=== PATIENT | female | born 1970 | race African-American/Black ===

== ENCOUNTER 2016-11-05 00:07 | Inpatient (IN) | payer OTHER ==
[~2016-11-05] VITALS: Ht 177.8 cm; Wt 159.8 kg
--- NOTE | ~2016-11-05 | HP ---
PATIENT'S NAME: DEACON WILSON [facility] AGE: 46 Y [address] ROOM: [place] [address] LOCATION: GPCU ADMIT DATE: 11/05/2016 History & Physical DISCHARGE DATE: FAMILY PHYSICIAN: PHYSICIAN, UNKNOWN ATTENDING PHYSICIAN: YASMIN AGUERO DATE OF SERVICE: CHIEF COMPLAINT: Shortness of breath. HISTORY OF PRESENT ILLNESS: A 46-year-old lady with a past medical history significant for obesity hypoventilation syndrome, morbid obesity, who was travelling from [place] to [place], developed shortness of breath and feeling of being unwell in the motel. She did have a pulse oximeter on her from previous episode of pneumonia, and checked her oxygen levels, which were in the 70s. EMS was called, and the patient was taken to the local emergency department over there. In the emergency department, she was found to be in atrial fibrillation with RVR with elevation of the troponin levels as high as 3, and Cardiology was consulted here, and she was transferred here for further medical care. On my encounter, she is saying that she still feels short of breath, but denied any fever or chills. She denied any palpitations, any chest pain, any chest tightness. No sputum production reported. She denied any extremity swelling. She denied any abdominal pain, any burning on urination, any constipation, diarrhea. She did report that she took multiple breaks while driving from [place] to [place] with her fiance. Never had this kind of symptom before. She said that she had pneumonia in the past, and this symptom does not feel like that this is pneumonia. REVIEW OF SYSTEMS: All other systems reviewed and were negative except those mentioned in the HPI. ALLERGIES: NO KNOWN DRUG ALLERGIES. PAST MEDICAL HISTORY: Obesity hypoventilation syndrome, on BiPAP. MEDICATIONS: None. SOCIAL HISTORY: Quit smoking 8 years ago. PATIENT'S NAME: DEACON WILSON [facility] AGE: 46 Y [address] ROOM: [place] [address] LOCATION: GPCU ADMIT DATE: 11/05/2016 History & Physical DISCHARGE DATE: FAMILY PHYSICIAN: PHYSICIAN, UNKNOWN ATTENDING PHYSICIAN: YASMIN AGUERO FAMILY HISTORY: Negative for heart disease, high blood pressure, or blood clots. PHYSICAL EXAMINATION: VITAL SIGNS: Blood pressure on arrival to our facility was 210/80, respiratory rate of 20, pulse in the 100s, satting 83% on room air and then 91% on 6 L of supplemental oxygen. GENERAL: No acute distress. Alert and oriented x3. HEENT: Head: Atraumatic, normocephalic. Eyes: Nonicteric. No pallor. Oropharynx, moist mucous membranes. CARDIOVASCULAR: Irregular, variable S1 and S2. No murmurs, gallops, or rubs. LUNGS: Right-sided decreased air entry. No expiratory wheezes noted. ABDOMEN: Soft, nontender, nondistended. Obese. Bowel sounds are present. EXTREMITIES: No clubbing, cyanosis, or edema. PSYCH: Normal affect, mood, and speech. NEUROLOGIC: Cranial nerves 2 through 12 intact. No motor or sensory deficit noted. MUSCULOSKELETAL: No muscle tenderness or joint swelling noted. ENDOCRINE: No thyromegaly or myxedema noted. SKIN: No bruises or blemishes noted. LABORATORY AND DIAGNOSTIC DATA: EKG done at the outside hospital showed atrial fibrillation with rapid ventricular rate. No ST-T wave elevation noted. Chest x-ray was done, which preliminary report was no acute changes, but on my review of the chest x-ray, it appears that there is a right-sided consolidation. BNP was about 300, first set of troponin was 3.30. White count was impressive for 20. BMP was unremarkable. ASSESSMENT: 1. Acute hypoxic respiratory failure secondary to pneumonia. 2. Right lower lobe pneumonia. 3. Atrial fibrillation with rapid ventricular rate. 4. Non-ST elevation myocardial infarction. 5. Chronic hypoxic respiratory failure. 6. Morbid obesity. PLAN: We are going to admit this patient to the PCU. Supplemental oxygen will be provided. ABGs were done on admission to our hospital, which just showed hypoxia. We are going to obtain blood cultures, two sets of sputum cultures, and start treating this as community-acquired pneumonia with ceftriaxone and Levaquin. She also has atrial fibrillation with significant elevation of PATIENT'S NAME: DEACON WILSON [facility] AGE: 46 Y [address] ROOM: [place] [address] LOCATION: GPCU ADMIT DATE: 11/05/2016 History & Physical DISCHARGE DATE: FAMILY PHYSICIAN: PHYSICIAN, UNKNOWN ATTENDING PHYSICIAN: YASMIN AGUERO troponins. Aspirin had been given already at the outside hospital. We will give her statin and continue the heparin drip. Cardizem drip for the rate control. We are going to rule out pulmonary embolism as well with a CT scan. I believe this is all secondary to pneumonia causing atrial fibrillation and elevation of troponin levels, but echocardiography will be done and Cardiology consultation will also be obtained. Procalcitonin and lactic levels are pending at this point. Further management will depend on her progress in the hospital. MD LUAN MATTA/osman /[id number] D: [id number] T: [id number] HISTORY & PHYSICAL
--- NOTE | ~2016-11-05 | CATH ---
Cardiac Diagnostic Report Demographics Patient Name KATIE Simeon Gender Female Date of 1970 Age 46 year(s) Patient Number [id number] Date of Study 11/05/2016 Visit Number [id number] Room Number G6[address] [place] [id number] Ht 177.8 cm Wt 170.55 kg Referring Elenita Winslow Primary Physician Physician Performing Fredi Secondary Physician Physician Yadira CAMERON Diagnostic Fredi Assisting Physician Physician Yadira CAMERON Interventional Physician Nuclear Process Engineer Physician Findings and Conclusions Diagnostic Findings and Conclusion 1) Severely elevated LVEDP 19mmHg with No gradient. 2) Mild CAD 3) Possible Myocarditis Diagnostic Recommendations Medical Therapy. Procedure Description The patient was brought to the diagnostic cardiac catheterization-EP laboratory in the fasting, non-sedated state. Informed consent was obtained in the written and verbal form after the risks and benefits were explained. The patient had no further questions and agreed to proceed. The planned puncture-incision site(s) were shaved and prepped with ChloraPrep and draped in the usual sterile manner. Conscious sedation, supplemental oxygen, and pain control medications were delivered by a registered nurse under physician guidance. Surface ECG rhythm, blood pressure measurement, and pulse oximetry were monitored throughout the procedure. Arterial access. The access site was infiltrated with lidocaine. The vessel was entered with the Seldinger technique. A sheath was advanced into the vessel and used for catheter placement. Selective left coronary angiography. A catheter was advanced into the left coronary vessel ostium under Fluoroscopic guidance. Contrast was injected by hand. Images were obtained in multiple projections. Selective right coronary angiography. A catheter was advanced into the right coronary vessel ostium under fluoroscopic guidance. Contrast was injected by hand. Images were obtained in multiple projections. Left heart catheterization. A catheter was advanced across the aortic valve to the left ventricle under fluoroscopic guidance. Resting hemodynamics were obtained. Arterial artery hemostasis was achieved. The patient was transferred to a regular nursing floor via cart accompanied by a nurse. The patient left the laboratory in stable condition. Diagnostic Cath Status: Urgent Procedure Procedure Type Diagnostic procedure:Angiography:, Coronary Angios w/[facility] Indications: Non-ST elevation VT. The procedure was explained in detail to the patient. Risks, complications and alternative treatments were reviewed. Written consent was obtained. Medications Reviewed with Patient prior to Procedure. Angiographic Findings Dominance: Right Cardiac Arteries and Lesion Findings LMCA: Abnormal.The LMCA is a large caliber vessel. Lesion on LMCA: 20% stenosis . LAD: Normal (0% Stenosis).The LAD is a type III vessel. The 1st Diag appears normal. LCx: Normal (0% Stenosis). RCA: Abnormal.The RCA is a large caliber vessel. Lesion on Prox RCA: Ostial.10% stenosis . Coronary Tree Procedure Data Procedure Date Date: 11/05/2016Start: 02:06 PMEnd: 02:38 PM Entry Locations - Retrograde Percutaneous access was performed through the Right Radial artery (Primary location). A 6 Fr sheath was inserted. Hemostasis was successfully obtained using an R band. Closure Comments: Myles placement. 15 ml air in band. Procedure Medications Order and Administration + + +---------+ + !Time !Medication !Dosage !Route ! + + +---------+ + !11/05/2016 02:01 PM !Oxygen !6 l/min !Mask ! + + +---------+ + !11/05/2016 02:03 PM !Fentanyl !50 mcg !I.V. ! + + +---------+ + !11/05/2016 02:05 PM !Versed !1 mg !I.V. ! + + +---------+ + !11/05/2016 02:08 PM !Radial Nitroglycerin !100 mcg !I.A. ! + + +---------+ + !11/05/2016 02:09 PM !Radial 2% Lidocaine !40 mg ! ! + + +---------+ 11/05/2016 02:08 PM !Oxygen !8 l/min !Mask ! + + +---------+ 11/05/2016 02:11 PM !Oxygen !10 l/min !Mask ! + + +---------+ + !11/05/2016 02:16 PM !D5LR !20 ml/hr !I.V. drip ! + + +---------+ + Devices Used - A6 Fr. BS JR 4 Diag. Catheterwas used for:Right coronary angiography. - A6 Fr. BS JL 3.5 Diag. Catheterwas used for:Left coronary angiography. Contrast Material - Isovue 31285 ml Fluoroscopy Time: Diagnostic: 4:06 minutes. Total: 4:06 minutes. Fluoroscopy Dose: Diagnostic: 1254 mGy. Total: 1254 mGy. Estimated Blood Loss: 20 ml. Medical History Allergies - No known allergies. Risk Factors The patient risk factors include:family history of premature CAD, last creatinine: 1.2 mg/dl, creatinine clearance: 159.4 ml/min and former tobacco use. Admission Data Admission Date: 11/05/2016 Admission Time: 02:10 AM Admit Source: Emergency department Insurance Payors: None. Admission Medications + +------+------+ + + + + !Medication !Dosage!Times !Last !Last !Administered !Comments ! ! ! !Per !Delivery !Delivery ! ! ! ! ! !Day !Date !Time ! ! ! + +------+------+ + + + + !Aspirin ! ! ! ! !Yes ! ! !(any) ! ! ! ! ! ! ! + +------+------+ + + + + !Beta ! ! ! ! !Yes ! ! !Nuris ! ! ! ! ! ! ! !(any) ! ! ! ! ! ! ! + +------+------+ + + + + !Statin ! ! ! ! !Yes ! ! !(any) ! ! ! ! ! ! ! + +------+------+ + + + + Clinical Evaluation Leading to Procedure - The patient's CAD presentation was assessed as: Non-STEMI. - There were no anginal symptoms. Anti-anginal medications were prescribed during the past two weeks. The medications are: Beta Blockers and Ca channel Blockers. - The patient has been in a state of heart failure within the past two weeks. - The patient's heart failure status was assessed as NYHA Class IV, with CHF symptoms of PND. VA . Ejection Fraction - 11/05/2016 - Method: Echocardiography. EF%: 40. Hemodynamics Condition: Rest O2 Consumption: Estimated: 308.63Heart Rate: 105 bpm Pressures (mmHg) +-----+ + !Site !Pressure ! +-----+ + !LV !134/15 ,20 ! +-----+ + !LV !131/14 ,21 ! +-----+ + !AO !131/97 (111) ! +-----+ + !LV !128/12 ,24 ! +-----+ + !AO !129/99 (111) ! +-----+ + Valve Gradients and Areas + +---------+---------+---------+ +---------+ + !Valve !Peak !Mean !Area !Index !Flow !Source ! + +---------+---------+---------+ +---------+ + !Aortic !0 ! ! ! ! ! ! + +---------+---------+---------+ +---------+ + !Aortic !0 ! ! ! ! ! ! + +---------+---------+---------+ +---------+ + Shunts Oxygen Values O2 Capacity 157.76 O2 Consumption 308.63 Discharge Data Discharge Date: 11/08/2016 Hospital Status: Inpatient Signatures dtt: Yadira Rai dtd: 11/05/16 1406 Physician Self Edit
--- NOTE | ~2016-11-05 | DS ---
PATIENT'S NAME: DEACON WILSON [facility] AGE: 46 Y [address] [place] [facility] [place] [address] LOCATION: GPCU ADMIT DATE: 11/05/2016 Discharge Summary DISCHARGE DATE: 11/08/2016 FAMILY PHYSICIAN: Physician, Unknown ATTENDING PHYSICIAN: Mell Kwong PRIMARY DIAGNOSES: 1. Acute combined systolic and diastolic congestive heart failure. 2. Myocarditis. 3. Atrial fibrillation with rapid ventricular response. 4. Acute on chronic hypoxic respiratory failure. 5. Morbid obesity. 6. Diabetes mellitus, type 2. 7. Obstructive sleep apnea. 8. Left lower lobe pneumonia. 9. Bacteremia with bacillus species. 10. Medical noncompliance. 11. History of migraine headaches. 12. Qei-EV-qgbehqakg myocardial infarction. OPERATIONS/PROCEDURES: Cardiac catheterization was carried out on 11/06/[address] Rai demonstrating nonobstructive coronary artery disease. Echocardiogram was performed on 11/05/2016 demonstrating an ejection fraction of 35% to 40% with moderate pulmonary hypertension at [address] scan of the chest, per PE protocol, performed on 11/05/2016 negative for PE, but demonstrating bibasilar pneumonia, left greater than right, and pulmonary infiltrates. A 7 mm right lower lung nodule identified. HISTORY OF PRESENTING ILLNESS AND REASON FOR ADMISSION: Please refer to the H and P dictated on 11/05/[address] Kwong. HOSPITAL COURSE: The patient was admitted to the hospital as noted above with a presumptive diagnosis of acute hypoxic respiratory failure and non-ST- elevation [place]. Clinical examination and radiographic studies suggested the presence of pneumonia. She was treated aggressively with broad-spectrum antibiotic therapy. Cultures did eventually reveal bacillus species, although this was suspected to be contaminant. Cardiology was consulted. She was recommended to undergo cardiac catheterization, and this was carried out as described above. She did also undergo echocardiography demonstrating combined systolic and diastolic congestive heart failure. She did develop atrial fibrillation with rapid ventricular rates with rates into the 150s. She was converted on amiodarone and subsequently started on PATIENT'S NAME: DEACON WILSON [facility] AGE: 46 Y [address] ROOM: [place] [address] LOCATION: GPCU ADMIT DATE: 11/05/2016 Discharge Summary DISCHARGE DATE: 11/08/2016 FAMILY PHYSICIAN: Physician, Unknown ATTENDING PHYSICIAN: Mell Kwong digoxin. Once she had become rate-controlled and back in sinus rhythm, the digoxin was discontinued. She did receive Lasix drip for aggressive diuresis. She had good results with that, but ultimately refused it. She was subsequently transitioned to an oral diuretic regimen. Her fluid balance was negative 9 L over the course of her 3- 1/2-day stay. Her weight trended from 171 kg at the point of admission to 159.8 on the date of discharge. The patient was noted to have hyperglycemia, and hemoglobin A1c testing suggested the presence of diabetes mellitus. Blood sugars were monitored and managed with Accu-Cheks. Unfortunately, the patient was resistant to diabetes management and denied having this. She was marginally compliant with the insulin regimen and was not agreeable to discharge on active diabetes management. She did agree to maintain attention to dietary and activity education and instructions. The patient was also noted to have a history of obstructive sleep apnea, noting that she had been previously treated with BiPAP. She did have some persistent oxygen requirement over the course of her hospital stay here, although this did improve. She was able to be weaned off oxygen during the daytime. An overnight trend oximetry test was requested, but she did not keep the monitor on over the course of the night. She adamantly denied having any issues with nocturnal hypoxia, denied that she had obstructive sleep apnea, and indicated that she only used the BiPAP because she "wanted to." She refused further workup for this and refused any consideration for discharge with oxygen. By the end of the day on 11/08/2016, it was felt that she was medically stabilized well enough for discharge to continue traveling to [place]. She indicated that she would break up the trip over 2 days and that she would establish primary care within the next 7 days once she arrived at her destination. She refused any additional services here or to stay at this facility for assistance in arranging the necessary followup. I counseled her that I thought this was less than ideal, but agreed that it was not unreasonable. DISCHARGE INSTRUCTIONS: DIET: ADA-prudent diet as tolerated. ACTIVITY: As tolerated. MEDICATIONS: 1. Levofloxacin 750 mg p.o. daily x6 more days. PATIENT'S NAME: DAECON WILSON [facility] AGE: 46 Y [address] ROOM: [address] [place], [place] [address] LOCATION: GPCU ADMIT DATE: 11/05/2016 Discharge Summary DISCHARGE DATE: 11/08/2016 FAMILY PHYSICIAN: Physician, Unknown ATTENDING PHYSICIAN: Mell Kwong 2. Aspirin 325 mg p.o. daily. 3. Enalapril 1.25 mg p.o. b.i.d. 4. Lasix 60 mg p.o. b.i.d. 5. Metoprolol 50 mg p.o. daily. 6. Potassium 40 mEq p.o. b.i.d. 7. Xarelto 20 mg p.o. daily. 8. Spironolactone 25 mg p.o. daily. FOLLOWUP: She will follow up with Cardiology, yet to be determined, in 2 to 3 days in [place]. She will establish primary care in [place] in 2 to 3 days. CONDITION ON DISCHARGE: Fair. Total time spent on discharge process is 60 minutes. MD JERRY BENNETT/osman /[id number] d: 11/08/16 1205 t: 11/10/16 1729, DISCHARGE SUMMARY
--- NOTE | ~2016-11-05 | PUL ---
PATIENT'S NAME: DEACON WILSON [facility] AGE: 46 Y [address] ROOM: [address] [address] LOCATION: GPCU ADMIT DATE: 11/05/2016 Pulmonary DISCHARGE DATE: 11/08/2016 FAMILY PHYSICIAN: Physician, Unknown ATTENDING PHYSICIAN: Mell Kwong NAME OF PROCEDURE: Overnight Pulse Oximetry DATE OF PROCEDURE: November 07 to November 08, 2016 REASON FOR EXAM: Nocturnal hypoxemia RESULTS: The test was performed with 2 liters of oxygen. The recording time was 6 hours, 16 minutes, and 20 seconds. Total valid sampling was 5 hours, 48 minutes. Highest pulse was 113 per minute, lowest pulse was 78 per minute. The total with three longest continuous times when saturation was below 88% are 33 minutes, 21 minutes, and 19 minutes. The desaturation event index is elevated at 10.2. PHYSICIAN INTERPRETATION: The patient has evidence of significant nocturnal hypoxia and would qualify for supplemental oxygen as per Medicare criteria, a sleep study is recommended considering the degree of nocturnal hypoxia. MD CONI LORA/kristine /[id number] dtt: 11/12/16 1159 , WILIAM GARCIA dtd: 11/11/16 1313
--- NOTE | ~2016-11-05 | CON ---
PATIENT'S NAME: DEACON WILSON [facility] AGE: 46 Y [address] ROOM: [place] [address] LOCATION: GPCU ADMIT DATE: 11/05/2016 Consultation DISCHARGE DATE: FAMILY PHYSICIAN: PHYSICIAN, UNKNOWN ATTENDING PHYSICIAN: YASMIN AGUERO DATE OF CONSULTATION: 11/05/2016 REFERRING PHYSICIAN: Yadira Rai MD HISTORY OF PRESENT ILLNESS: Mrs. Wilson is a 46-year-old female patient who is traveling between [place] to [place], where she is going to be moving to. She has been up and packing quite a bit in the last 2 weeks and has been feeling tired. Incidentally, she had respiratory infection 2 years ago and uses a pulse oximetry off and on and usually she runs between 96% to 98%. She uses the nebulizer treatment for stress-related asthma and uses a BiPAP at night, even though she says her sleep study was negative. On the way to [place], she was traveling to [place], when she felt more short of breath and she thought it was related to the elevation. She did feel better after she came down to the sea level. However, yesterday, her oxygen saturation level was still 70s to 80% range. She was in functional class II to III. She denies any discomfort in her chest of any kind or her jaw, throat, shoulders, arms, or back. There is no history of paroxysmal nocturnal dyspnea or orthopnea. She denies any lightheadedness, dizziness, syncope, presyncope, palpitations, or ankle swelling. The patient has history of quitting smoking 8 years ago. She has history of congestive heart failure in a brother at the age of 47. She denies hypertension, type 2 diabetes, or elevated cholesterol. She has no history of CO, angina, or nitroglycerin use. There is no history of rheumatic fever, heart murmur, heart failure, dilated or enlarged heart, or any diagnosed cardiac arrhythmias. MEDICATIONS: Mostly the nebulizers and also iron pills. ALLERGIES: NONE. PAST MEDICAL HISTORY: 1. She has never had any surgeries. 2. Obesity. PATIENT'S NAME: DEACON WILSON [facility] AGE: 46 Y [address] 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 She denies abusing alcohol. Her appetite is good. She has lost about 25 pounds intentionally over the past 5 minutes. Sleep is normal. She does not use any recreational drugs. FAMILY HISTORY: Congestive heart failure in a 47-year-old brother. REVIEW OF SYSTEMS: A 12-point review of systems reveal: 1. Migraine headaches. 2. Allergies. 3. Corrective lenses. 4. Stress-related asthma. PHYSICAL EXAMINATION: VITAL SIGNS: Her blood pressure is 120s/80s now, heart rate is 110 and irregular, respirations are 18, afebrile, oxygen saturation is 93% on 2 L. HEENT: Normal. NECK: Supple with no JVD, thyromegaly, lymphadenopathy, or carotid bruit. PMI is not well located. First and second heart sounds are irregular. There are no added sounds or murmurs. CHEST: Clear to auscultation. ABDOMEN: Obese. EXTREMITIES: Reveal no edema. CENTRAL NERVOUS SYSTEM: Overall appears to be intact. ASSESSMENT: The patient went to [facility], where she was found to be in atrial fibrillation with rapid ventricular response and she was started on Cardizem and beta blockers and was sent over. Her troponin is elevated. She may have pneumonia or congestive heart failure. Pulmonary embolism cannot be ruled out. She also has ehw-KA-xnatpdd elevation myocardial infarction. The patient had an echo done. RECOMMENDATIONS: We will check her echo and after that, make further recommendations. She definitely will need left heart catheterization done to evaluate her coronaries given the ajc-LM-eiyvikk elevation CO. Again, I appreciate this opportunity to participate in the care of Mrs. Wilson. PATIENT'S NAME: DEACON WILSON [facility] AGE: 46 Y [address] ROOM: [address] [place], [place] [address] LOCATION: GPCU ADMIT DATE: 11/05/2016 Consultation DISCHARGE DATE: FAMILY PHYSICIAN: , UNKNOWN ATTENDING PHYSICIAN: YASMIN AGUERO MD ERLINDA YUNG/modl /[id number] d: 11/05/16 0953 t: 11/11/16 1209, CONSULTATION REPORT
--- NOTE | ~2016-11-05 | ECHO ---
Transthoracic Echocardiography Report (TTE) Demographics Patient Name DEACON WILSON Date of Study 11/05/2016 Patient Number [id number] Visit Number [id number] Date of 1970 Room Number G6329 Gender Female Number Age 46 year(s) Referring Elenita Winslow Window Shade Cloth Sewer Kirti Cheng RDCS, Physician RVT Physician Interpreting Fredi May Brass Molder Helper Physician Supervising Ordering Elenita Winslow MD/MLP Physician MD Nurse Stress Leather Cartridge Belt Maker Conclusions Contractility Score Summary At rest the following contractility abnormalities were noted: Hypokinesis of the Apical inferior, the Apical septal, the Apical lateral, the Apical anterior and the Apical cap segments. Contractility of all other segments appeared normal. Summary Technically difficult exam. The estimated left ventricular ejection fraction is 35- 40%.Mild to moderate concentric left ventricular hypertrophy.Normal LV internal dimensions.WMAs are difficult to comment on. Increased LA pressures. The right atrium is mildly dilated. Elevated RA pressure. Mild mitral regurgitation by color Doppler. Mild mitral annular calcification. There is moderate pulmonary hypertension. The pulmonary pressure (RVSP) is 66 mmHg. Moderate tricuspid regurgitation by color Doppler. The tricuspid valve is not well visualized. Moderate pulmonic valve regurgitation by color Doppler. The pulmonic valve is not well visualized. Procedure Type of Study TTE procedure:2D Echocardiogram. Procedure Date Date: 11/05/2016 Start: 07:37 AM Study Location: Inpatient Portable Technical Quality: Limited visualization due to body habitus. Indications:Acute coronary syndrome. Appropriate Use Criteria: 9 Patient Status: Routine Contrast Medium: Definity. Amount - 1.5 ml Rhythm: Atrial fibrillation HR: 108 bpm BP: 158/99 mmHg M-Mode/2D Measurements LV Diastolic Dimension: 5.43 cm LV Systolic Dimension: 3.89 cm LV Septum Diastolic: 1.31 cm LV PW Diastolic: 1.69 cm AO Root Dimension: 2.5 cm Cardiac Output: 4.08 l/min LA Dimension: 4.1 cm LVOT: 2.2 cm IVC Inspiration: 2.77 cm LVOT VTI: 9.95 cm RV Base: 4.08 cm LV Stroke volume: 37.8 ml RV Length: 8.02 cm TAPSE: 1.52 cm TDI-S': 12 cm/s Doppler Measurements AV Peak Velocity: 1.61 m/s MV Peak E-Wave: 1.11 m/s AV Peak Gradient: 10.37 mmHg MV Peak A-Wave: 0.36 m/s AV Mean Gradient: 5 mmHg MV E/A Ratio: 3.08 LVOT Peak Velocity: 0.68 m/s MV P1/2t: 36 msec TR Gradient:51.27 mmHg PV Peak Velocity: 0.7 m/s Estimated RAP:15 mmHg PV Peak Gradient: 1.97 mmHg Estimated RVSP: 66 mmHg Estimated PASP: 66.27 mmHg E' Septal Velocity: 0.12 m/s A' Septal Velocity: 0.05 m/s E' Lateral Velocity: 0.15 m/s A' Lateral Velocity: 0.05 m/s MV E/E' Ratio: 7.2 Findings Left Ventricle Mild to moderate LVH with normal internal dimensions.LVEF:35-40%. WMAs are difficult to comment on. Right Ventricle Mildly dilated right ventricle with mild to moderate RV hypokinesia. Left Atrium Normal left atrial size. Increased LA pressures. Right Atrium The right atrium is mildly dilated. Dilated IVC with poor inspiratory collapse consistent with elevated RA pressure. Mitral Valve Mild mitral regurgitation by color Doppler. Mild mitral annular calcification. Aortic Valve The aortic valve is mildly sclerotic. Tricuspid Valve There is moderate pulmonary hypertension. The pulmonary pressure (RVSP) is 66 mmHg. Moderate tricuspid regurgitation by color Doppler. The tricuspid valve is not well visualized. Pulmonic Valve Moderate pulmonic valve regurgitation by color Doppler. The pulmonic valve is not well visualized. Pericardial Effusion No evidence of pericardial effusion. Miscellaneous Visualized portions of the aortic root and ascending aorta appear normal in size. Pleural Effusion No evidence of pleural effusion. Contractility Score LV regional wall motion:(0-Non visualized 1-Normal 2-Hypokinesis 3-Akinesis 4-Dyskinesis 5-Aneurysm) Signature dtt: Yadira Rai dtkatie: 11/05/16 0737 Physician Self Edit
[2016-11-05 02:57] LABS: BICARBONATE 22.5 mmol/L (18.0-23.0); PCO2 39 mmHg (35-45); PO2 65 mmHg (80-90)
[2016-11-05 03:31] LABS: BASOPHIL # 0.1 K/uL (0.0-0.2); BASOPHIL % 0.6 %; EOSINOPHIL # 0.1 K/uL (0.0-0.5); EOSINOPHIL % 0.4 %; HEMATOCRIT 39.6 % (33.0-46.0); HEMOGLOBIN 11.6 g/dL (10.0-15.0); IMMATURE GRANULOCYTE # 0.1 K/uL (0.0-0.3); IMMATURE GRANULOCYTE % 0.6 %; LYMPHOCYTE # 2.4 K/uL (0.8-4.0); LYMPHOCYTE % 13.2 %; MCH 21.6 pg (27.0-34.0); MCHC 29.3 gm/dL (32.0-36.5); MCV 73.9 fl (83.0-98.0); MONOCYTE # 1.4 K/uL (0.0-1.0); MONOCYTE % 7.6 %; MPV 9.5 fl (9.4-12.4); NEUTROPHIL # (ANC) 14.4 K/uL (1.8-7.8); NEUTROPHIL % 77.6 %; NRBC % 1.4 /100WBC (0-0.00); PLATELET COUNT 506 K/uL (150-450); RBC 5.36 M/uL (3.50-5.50); RDW-CV 24.1 % (11.9-14.6)
[2016-11-05 03:32] LABS: WBC 18.5 K/uL (4.0-11.0)
[2016-11-05 03:54] LABS: INR - (THERAPEUTIC) 1.22 (0.92-1.07); PROTIME 12.8 SECONDS (9.8-11.4)
[2016-11-05 03:55] LABS: ANION GAP 15.3 (10.0-19.0); CALCIUM 8.2 mg/dL (8.5-10.5); CREATININE 1.2 mg/dL (0.5-1.1); POTASSIUM 4.3 mMol/L (3.7-5.1)
[2016-11-06 06:48] LABS: BASOPHIL # 0.1 K/uL (0.0-0.2); BASOPHIL % 0.8 %; EOSINOPHIL # 0.2 K/uL (0.0-0.5); EOSINOPHIL % 1.4 %; HEMATOCRIT 38.5 % (33.0-46.0); HEMOGLOBIN 10.9 g/dL (10.0-15.0); IMMATURE GRANULOCYTE # 0.1 K/uL (0.0-0.3); IMMATURE GRANULOCYTE % 0.6 %; LYMPHOCYTE # 2.6 K/uL (0.8-4.0); LYMPHOCYTE % 15.2 %; MCH 21.4 pg (27.0-34.0); MCHC 28.3 gm/dL (32.0-36.5); MCV 75.6 fl (83.0-98.0); MONOCYTE # 1.4 K/uL (0.0-1.0); MONOCYTE % 7.8 %; MPV 9.8 fl (9.4-12.4); NEUTROPHIL # (ANC) 12.8 K/uL (1.8-7.8); NEUTROPHIL % 74.2 %; NRBC % 0.5 /100WBC (0-0.00); PLATELET COUNT 473 K/uL (150-450); RBC 5.09 M/uL (3.50-5.50); RDW-CV 24.7 % (11.9-14.6)
[2016-11-06 06:51] LABS: WBC 17.3 K/uL (4.0-11.0)
[2016-11-06 07:10] LABS: ALBUMIN 2.8 gm/dL (3.5-5.0); ANION GAP 12.9 (10.0-19.0); CALCIUM 8.5 mg/dL (8.5-10.5); PHOSPHORUS 3.3 mg/dL (2.5-4.9); POTASSIUM 4.9 mMol/L (3.7-5.1)
[2016-11-07 04:58] LABS: BASOPHIL # 0.1 K/uL (0.0-0.2); BASOPHIL % 0.6 %; EOSINOPHIL # 0.3 K/uL (0.0-0.5); EOSINOPHIL % 1.9 %; HEMATOCRIT 37.9 % (33.0-46.0); IMMATURE GRANULOCYTE # 0.1 K/uL (0.0-0.3); IMMATURE GRANULOCYTE % 0.6 %; LYMPHOCYTE # 1.7 K/uL (0.8-4.0); MCH 21.7 pg (27.0-34.0); MCV 74.9 fl (83.0-98.0); MONOCYTE # 1.2 K/uL (0.0-1.0); MONOCYTE % 8.2 %; MPV 9.7 fl (9.4-12.4); NEUTROPHIL # (ANC) 10.8 K/uL (1.8-7.8); NEUTROPHIL % 76.7 %; NRBC % 0.1 /100WBC (0-0.00); PLATELET COUNT 440 K/uL (150-450); RBC 5.06 M/uL (3.50-5.50); RDW-CV 23.9 % (11.9-14.6); WBC 14.1 K/uL (4.0-11.0)
[2016-11-07 05:10] LABS: ALBUMIN 2.8 gm/dL (3.5-5.0); ANION GAP 12.8 (10.0-19.0); CALCIUM 9.1 mg/dL (8.5-10.5); PHOSPHORUS 4.3 mg/dL (2.5-4.9); POTASSIUM 3.8 mMol/L (3.7-5.1)
[2016-11-08 04:40] LABS: ANION GAP 10.9 (10.0-19.0); CALCIUM 9.5 mg/dL (8.5-10.5); POTASSIUM 3.9 mMol/L (3.7-5.1)
[2016-11-08] MEDS ORDERED: LEVAQUIN750 MG PO (11:13)
[2016-11-08] MEDS ORDERED: TOPROL XL 5050 MG PO (11:14)
[2016-11-08] MEDS ORDERED: XARELTO20 MG PO (11:15)
[2016-11-08] MEDS ORDERED: K-TAB 10MEQ10 MEQ PO (11:15)
[2016-11-08] MEDS ORDERED: ASPIRIN325 MG PO (11:17)
[2016-11-08] MEDS ORDERED: ALDACTONE25 MG PO (11:17)
[2016-11-08] MEDS ORDERED: VASOTEC2.5 MG PO (11:19)
[2016-11-08] MEDS ORDERED: LASIX20 MG PO (11:20)
== END 2016-11-08 11:45 | disposition disaster alternative care site (69) | DRG 280 ==
LOC: GPCU 02:10
PROVIDERS: Family Medicine; Internal Medicine Interventional Cardiology; ADMIT Internal Medicine
DX: I21.4 Non-ST elevation (NSTEMI) myocardial infarction (principal); J96.21 Acute and chronic respiratory failure with hypoxia; I50.41 Acute combined systolic (congestive) and diastolic (congestive) heart failure; J18.9 Pneumonia, unspecified organism; I51.4 Myocarditis, unspecified; E11.9 Type 2 diabetes mellitus without complications; I48.91 Unspecified atrial fibrillation; Z68.43 Body mass index [BMI] 50.0-59.9, adult; E66.01 Morbid (severe) obesity due to excess calories; Z91.14 Patient's other noncompliance with medication regimen; G47.33 Obstructive sleep apnea (adult) (pediatric); Z87.891 Personal history of nicotine dependence; J45.998 Other asthma; I25.10 Atherosclerotic heart disease of native coronary artery without angina pectoris
CPT/HCPCS: C1894; J0696; J1160; J1644; J1650; J1940; J2250; J2270; J2543; J3010; J3370; J7030; J7040; J7050; J7120; Q9957; Q9967